=== PATIENT | female | born 1985 | race Two or more races ===

== ENCOUNTER 2024-07-22 01:32 | Emergency (ER) | payer MEDICAID, SELFPAY ==
[2024-07-22 01:33] VITALS: BMI 24.6
--- NOTE | 2024-07-22 01:38 | EKG_ITS ---
[facility] Test Date: 2024-07-22 Pat Name: PINA MOODY Department: Room: - Gender: Female Him Manager: : 1985 Requested By: Fred Elder Order Number: [id number] Reading MD: Fred Elder Measurements Intervals [place] Rate: 95 P: 41 OR: 129 QRS: 15 QRSD: 85 T: 34 QT: 355 QTc: 446 Interpretive Statements SINUS RHYTHM POSSIBLE LEFT ATRIAL ENLARGEMENT [-0.1mV P-WAVE IN V1/V2] POSSIBLE RIGHT VENTRICULAR CONDUCTION DELAY [RSR (QR) IN V1/V2] MINIMAL ST DEPRESSION [0.025+ mV ST DEPRESSION] Compared to ECG 11/16/2023 03:43:09 ST (T wave) deviation now present /store/S0/[id number]/ecg/[id number].pdf
[2024-07-22 01:47] VITALS: BP 158/107; PULSE 84; RESP 18; TEMP 36.8; O2SAT 99
--- NOTE | 2024-07-22 01:51 | XR_ITS ---
Examination: Upright PA chest single view TECHNIQUE: Upright PA chest single view Exam date and time: July 22, 2024 0156 hours INDICATIONS: Left-sided chest pain today FINDINGS: Normal heart size. Lungs are clear. Osseous structures are intact. IMPRESSION: No active disease
--- NOTE | 2024-07-22 01:52 | PD.EDRME ---
Rapid Medical Screening Exam [facility] Arrival date/time: 07/22/24 01:32 38F with history of GERD presents to ED with 2 days of chest pressure and some burning pain. Pain is worse with movement of L shoulder. Patient denies URI symptoms and SOB. Chief Complaint: Chest Pain Vital signs: Vital Signs Temperature 98.2 F 07/22/24 01:47 Pulse Rate 84 07/22/24 01:47 Respiratory Rate 18 07/22/24 01:47 Blood Pressure 158/107 H 07/22/24 01:47 Pulse Oximetry (%) 99 07/22/24 01:47 Oxygen Delivery Method Room Air 07/22/24 01:47
[2024-07-22] MEDS: MG HYD/AL HYD/SIME (Maalox Reg) SUSP 30 ML UDC PO (01:56)
[2024-07-22] MEDS: FAMOTIDINE 20 MG TABLET 40 MG PO (01:56)
[2024-07-22 03:52] LABS: Alanine Aminotransferase 15 U/L (10-49); Albumin, Serum 4.6 gm/dL (3.5-5.0); Albumin/Globulin Ratio 1.7 (1.2-2.2); Alkaline Phosphatase 65 U/L (46-116); Anion Gap 9 (7-16); Aspartate Amino Transferase 18 U/L (0-34); BUN/Creatinine Ratio 10 Ratio (12-20); Bilirubin,Total 0.6 mg/dL (0.3-1.2); Blood Urea Nitrogen 6 mg/dL (9-23); Calcium 9.2 mg/dL (8.3-10.6); Calcium (Corrected) 9.2 mg/dL (8.5-10.1); Carbon Dioxide 23.8 mMol/L (20.0-31.0); Chloride 108 mMol/L (98-107); Creatinine (Component) 0.6 mg/dL (0.6-1.3); Estimated Creatinine Clearance 91.3 mL/min (>60); Globulin 2.7 gm/dL (2.3-3.5); Glucose 102 mg/dL (74-106); Osmolality,Calculated 278 (275-295); Potassium 3.4 mMol/L (3.4-5.1); Sodium 141 mMol/L (136-145); Total Protein 7.3 gm/dL (5.7-8.2); Troponin I < 0.002 ng/mL (0.0-0.045); eGFR > 60 See Note
--- NOTE | 2024-07-22 03:56 | PD.EDCHEST ---
ED Chest Pain RME/HPI General Chief Complaint: Chest Pain Stated Complaint: CHEST PAIN WITH HEART BURN Source: patient Arrival date/time: 07/22/24 01:32 Mode of arrival: ambulatory RME / HPI RME / HPI narrative: 07/22/24 01:32 38F with history of GERD presents to ED with 2 days of chest pressure and some burning pain. Pain is worse with movement of L shoulder. Patient denies URI symptoms and SOB. Dr. Lowery?s Main ED Evaluation: 38-year-old female, accompanied by her mother, presents to the ED with a complaint of positional chest pain. Patient reports that the pain worsened with arm movement enough to prevent her from lifting her arm, but it resolved spontaneously. She endorses a history of GERD and describes a burning chest sensation when lying down, consistent with heartburn. She also reports feeling anxious at the time but denies neck pain, or palpitations. She has no history of tobacco, alcohol, or drug use, and no family history of cardiac disease. Past medical history is significant for GERD and hyperlipidemia. Related Data Previous Rx's ?Medication ?Instructions ?Recorded famotidine 20 mg tablet (Pepcid) 20 mg PO BID 7 days #14 tabs 07/22/24 Allergies Allergy/AdvReac Type Severity Reaction Status Date / Time No Known Allergies Allergy Verified 11/16/23 03:28 Review of Systems Review of Systems Systems Reviewed: All systems reviewed, normal except as documented Past Medical History Past Medical History NEUROLOGIC: Positive Pulido's Palsy; Negative Neurological Disorders CARDIAC: Negative Cardiac Disorders or Congestive Heart Failure RESPIRATORY: Negative Chronic Obstructive Pulmonary Disease (COPD) GASTROINTESTINAL: Negative Gastrointestinal Disorders, Hepatitis or Colorectal Cancer GENITOURINARY: Negative Genitourinary Disorders, Renal Disease or Prostate Cancer REPRODUCTIVE: Positive Previous Pregnancies (X2); Negative Breast Cancer or Testicular Cancer MUSCULOSKELETAL: Negative Musculoskeletal Disorders or Bone Cancer ENDOCRINE: Negative Endocrine Disorders, Diabetes Mellitus Type 1 or Diabetes Mellitus Type 2 HEMATOLOGIC: Negative Blood Disorders OTHER HISTORY: Negative Hospitalization, Autoimmune Disease, Down Syndrome, Developmental Delay, Shingles, Falls, Blood Transfusions, Blood Transfusion Reaction, Anesthesia Reactions, Organ Transplant, Chemotherapy, Radiation Therapy, Hyperbaric Therapy, MRSA, VRSA, Vancomycin-Resistant Enterococci, Human Immunodeficiency Virus (HIV), Chicken Pox, Measles, Mumps, Rubella ([place] Measles), Pertussis, Clostridium Difficile, Breast Cancer, Cervical Cancer, Colorectal Cancer, Lung Cancer, Ovarian Cancer, Prostate Cancer or Testicular Cancer Family History FAMILY HISTORY: Negative Family Psychiatric Problems, Family Respiratory Disorders, Family Cardiac Disorders, Family Gastrointestinal Problems, Family Cancer, Family Surgery or Family Anesthesia Reaction Surgical History SURGICAL: Negative Section or Organ Transplant Social History SMOKING STATUS: Never smoker SECOND HAND EXPOSURE: No SUBSTANCE USE: does not use ED Exam Narrative Physical exam: GENERAL APPEARANCE: alert and oriented x 4, well-developed, well-nourished, no acute distress VITALS: All vitals were reviewed and the pulse ox is 99% on room air, which is normal according to my interpretation. HEENT: Normocephalic, atraumatic; pupils equal, round, reactive to light; EOMI; mucous membranes pink, moist; oropharynx clear NECK: Supple LUNGS: CTABL; no wheezes, no rales, no rhonchi HEART: Regular rate, regular rhythm; normal S1, S2; no murmurs ABDOMEN: non distended; normal BS; soft, no tenderness, no guarding, no rebound; no masses, no organomegaly, no hernia BACK: no CVA tenderness EXTREMITIES: atraumatic; no edema NEUROLOGIC: awake; alert and oriented x4; cranial nerves II-XII grossly intact; no focal sensory or motor deficits PSYCHIATRIC: appropriate mood and affect SKIN: warm, dry, normal color; no rashes Course Course Course Narrative: CXR is ordered for determining etiology of chest pain. Manual EKG obtained at 01:45 shows normal sinus rhythm at a rate of 95 bpm with normal axis, no ectopy, and no acute ischemic changes per my interpretation. Quality Measures none Orders Category Date Time Status EKG (ED ONLY) *Do not use* NOW Care 07/22/24 01:38 Completed EKG (ED Only) Stat Exams 07/22/24 01:38 Draft XR chest 1V portable Stat Exams 07/22/24 01:51 Taken CBC Stat Lab 07/22/24 01:56 Received Comprehensive Metabolic Panel Stat Lab 07/22/24 01:56 Completed Troponin I Stat Lab 07/22/24 01:56 Completed Famotidine [Pepcid] Med 07/22/24 01:51 Discontinued 40 mg PO X1 ONE mg Hyd/Al Hyd/Mor[place] Susp [Maalox Susp] Med 07/22/24 01:51 Discontinued 30 ml PO X1 ONE Vital Signs Vital signs: Vital Signs Temperature 98.2 F 07/22/24 01:47 Pulse Rate 84 07/22/24 01:47 Respiratory Rate 18 07/22/24 01:47 Blood Pressure 158/107 H 07/22/24 01:47 Pulse Oximetry (%) 99 07/22/24 01:47 Oxygen Delivery Method Room Air 07/22/24 01:47 Chest Pain MDM Narrative MDM Narrative:: 38-year-old female with a history of GERD and hyperlipidemia presents with positional chest pain that worsened with arm movement and was associated with anxiety and heartburn. Pain resolved spontaneously while in the ED. No family history of premature cardiac events. No tobacco, alcohol, or drug use. Heart score, 1, low risk. Initial workup included EKG, chest x-ray, troponin, CBC, CMP. Medications given include pepcid and maalox. 0355 I have spoken with the patient and discussed today?s findings, in addition to providing specific details for the plan of care. Questions are answered and there is an agreement with the plan. Re-assessment at the time of disposition demonstrates that the patient is in no acute distress. The patient has remained stable throughout the entire ED visit and is without objective evidence for acute process requiring urgent intervention or hospitalization. The patient is stable for discharge; counseling is provided and documented as above, discussed symptomatic treatment and specific conditions for return. Scribe Attestation: ITonya, am scribing for and in the presence of Dr. Lowery. Provider Notation: Although this document has been carefully reviewed, there may still be some phonetic and other typographical errors. These errors are purely grammatical due to imperfections in the software program and should not be construed in any way to compromise the substance of the patient's medical care during this visit. Patient data External records reviewed:: [facility] previous records Clinical information provided by:: patient Social determinants that could affect healthcare access:: none Patient has the following chronic illnesses:: See PMH How is presenting disease/condition affected by chronic disease/condition?: uneffected by Evaluation data The following diagnostics were reviewed and interpreted by me:: lab results, radiology exam(s) and EKG tracing(s) Lab and/or radiology exams considered but not ordered:: n/a Interpretation Summary: See narrative CXR shows normal cardiac silhouette, normal sharp diaphragmatic edge, no infiltrates, normal costophrenic angles, according to my interpretation. Medications / Prescriptions Medications or Prescriptions considered but not ordered:: n/a Medication administrations:: Medication Administration History Discontinued Medications Al Hydrox/Mg Hydrox/Simethicone (Mg Hyd/Al Hyd/[place] (Maalox Reg) Susp 30 Ml Udc) 30 ml PO X1 ONE Stop: 07/22/24 01:52 Last Admin: 07/22/24 01:56 Dose: 30 ml Documented By: DONTA Famotidine (Famotidine 20 Mg Tablet) 40 mg PO X1 ONE Stop: 07/22/24 01:52 Last Admin: 07/22/24 01:56 Dose: 40 mg Documented By: DONTA as above Consultations Consultation(s) initiated? (list below): No Diagnosis Chest Pain Differential Diagnosis: atypical chest pain, costochondritis and other (GERD) Most likely diagnosis given after review of the tests above:: GERD (gastroesophageal reflux disease) Admission Indicated Admission indicated?: not indicated Admission Request Was there a request for admission?: No Disposition Plan Disposition Plan: Discharge Discharge Attestation Discharge Attestation: The patient and all family members were given an opportunity to ask questions and understood the discharge instructions. Discharge instructions specifically effects, indications for sooner follow up or return to the emergency department, and the expected course of current diagnosis. Patient condition: Stable Discharge Plan Plan Patient Disposition: HOME (Self Care) Prescriptions/Referrals Prescriptions/Med Rec: New famotidine [Pepcid] 20 mg tablet 20 mg PO BID 7 Days Qty: 14 0RF Referrals: Jose Slaughter MD [Primary Care Provider] - In 1 week Problem List Clinical Impression: GERD (gastroesophageal reflux disease) Patient/Caregiver Discharge Instructions Discharge Activity: activity as tolerated Education Materials: ED GERD (Adult) Additional Instructions: Please return to the emergency department if you have any worsening or any further medical problems and we will help you. Otherwise you should follow-up with your primary care doctor within the next several days. I have called in a prescription for Pepcid at your pharmacy. Please take this medication twice per day for the next 7 days. Print Language: Greek Stand Alone Forms: Payal Award Info., Patient Portal Info Letter
--- NOTE | 2024-07-22 04:06 | PC.NURSE ---
WE HAD DOWN TIME FROM [id number].
[2024-07-22 04:15] LABS: Basophils % (Auto) 0 % (0-2.5); Eosinophils % (Auto) 0 % (0-10); Hematocrit 36.1 % (36.0-46.0); Hemoglobin 12.8 g/dL (12.0-16.0); Immature Granulocytes % (Auto) 0 % (0-0); Immature Granulocytes Auto 0.01 Thou/mm3 (0.00-0.00); Lymphocytes # (Auto) 2.3 Thou/mm3 (1.0-4.8); Lymphocytes % (Auto) 30 % (10-50); Mean Corpuscular HGB Conc 35.5 g/dl (31.0-37.0); Mean Corpuscular Hemoglobin 30.5 pg (25.0-35.0); Mean Corpuscular Volume 86 fL (80-100); Monocytes # (Auto) 0.5 Thou/mm3 (0.0-0.8); Monocytes % (Auto) 7 % (0-12); Neutrophils # (Auto) 4.8 Thou/mm3 (1.8-7.7); Neutrophils % (Auto) 63 % (37-80); Nucleated Red Blood Cell % 0 /100 WBC (0); Platelet Count 300 Thou/mm3 (140-440); White Blood Count 7.6 Thou/mm3 (3.6-11.0)
[2024-07-22 04:27] VITALS: BP 125/87; PULSE 65; RESP 18; TEMP 36.7; O2SAT 100
[2024-07-22] MEDS: LORazepam 0.5 MG TABLET 1 MG PO (05:01)
== END 2024-07-22 05:05 | disposition home or self-care (01) ==
PROVIDERS: Physician Assistant; Emergency Provider Emergency Medicine; PCP Obstetrics & Gynecology
DX: K21.9 Gastro-esophageal reflux disease without esophagitis (principal); R07.9 Chest pain, unspecified; R94.31 Abnormal electrocardiogram [ECG] [EKG]; E78.5 Hyperlipidemia, unspecified
CPT/HCPCS: 36415; 71045; 80053; 84484; 85025; 93005; 99283; A9270